=== PATIENT | female | born 1950 | race Caucasian/White ===

== ENCOUNTER 2019-10-08 19:27 | Inpatient (IN) | payer MEDICARE, MEDICAID ==
[~2019-10-08] VITALS: Ht 175.3 cm; Wt 74.8 kg
[2019-10-08] MEDS ORDERED: ONDANSETRON HCL 4MG/2ML INJ IV STA (20:28)
[2019-10-08] MEDS ORDERED: SODIUM CHLORIDE 0.9% 1,000 ML IV ONE (20:28)
[2019-10-08 20:57] LABS: HEMATOCRIT. 42.3 % (36.0-48.0); HEMOGLOBIN. 14.5 g/dL (12.0-16.0); MEAN CORPUSCULAR HEMOGLOBIN 29.8 pg (28.0-32.0); MEAN CORPUSCULAR VOLUME 87.2 fL (81.0-99.0); MEAN PLATELET VOLUME 9.7 fl (7.4-10.4); PLATELET 57 x1000/uL (130-400); RED BLOOD CELL COUNT 4.86 mill/uL (4.2-5.4); RED CELL DISTRIBUTION WIDTH 14.2 % (11.6-14.6)
[2019-10-08 21:02] LABS: CHLORIDE 106 mEq/L (98-107)
[2019-10-08 21:03] LABS: INR 1.2; PROTHROMBIN TIME 12.9 sec (9.6-11.0)
[2019-10-08 21:54] LABS: PLATELET ESTIMATE DECREASED
[2019-10-08] MEDS ORDERED: KETOROLAC 15MG/ML VIAL IV NR (23:00)
[2019-10-08 23:50] LABS: CLARITY URINE CLEAR (CLEAR); COLOR URINE YELLOW (YELLOW); KETONES URINE TRACE (NEGATIVE); LEUKOCYTE ESTERASE URINE NEGATIVE (NEGATIVE); NITRITE URINE NEGATIVE (NEGATIVE); OCCULT BLOOD URINE 1+ (NEGATIVE); PH URINE 5.5 (4.5-8.0); PROTEIN URINE 1+ (NEGATIVE); SPECIFIC GRAVITY URINE 1.026 (1.005-1.030)
[2019-10-09] MEDS ORDERED: LORAZEPAM 2MG/ML CPJ IV ONE
[2019-10-09] MEDS ORDERED: METOCLOPRAMIDE HCL 10MG/2ML VIAL IV ONE
[2019-10-09] MEDS ORDERED: ONDANSETRON HCL 4MG/2ML INJ IV ONE
[2019-10-09] MEDS ORDERED: METO25TA6 MT (10:02)
[2019-10-09] MEDS ORDERED: RIFA550T PO (10:02)
[2019-10-09] MEDS ORDERED: APIX5TAB MT (10:02)
[2019-10-09] MEDS ORDERED: AMIO100T4 PO (10:02)
[2019-10-09] MEDS ORDERED: HYDR8TAB44 PO (10:02)
[2019-10-09] MEDS ORDERED: TRAM50TA PO (10:02)
[2019-10-09] MEDS ORDERED: ONDANSETRON HCL 4MG/2ML INJ IV PRN (10:45)
[2019-10-09] MEDS ORDERED: TRAZODONE HCL 50MG TABLET PO PRN (10:45)
[2019-10-09] MEDS ORDERED: ACETAMINOPHEN 325MG TABLET PO PRN (10:45)
[2019-10-09 11:27] LABS: BASOPHILS % 0.1 % (0.0-2.0); EOSINOPHILS % 0.1 % (0.0-5.0); HEMATOCRIT. 39.6 % (36.0-48.0); HEMOGLOBIN. 13.8 g/dL (12.0-16.0); LYMPHOCYTES % 7.5 % (20.0-50.0); MEAN CORPUSCULAR HEMOGLOBIN 30.7 pg (28.0-32.0); MEAN CORPUSCULAR VOLUME 87.9 fL (81.0-99.0); MEAN PLATELET VOLUME 9.6 fl (7.4-10.4); MONOCYTES % 7.3 % (2.0-8.0); PLATELET 61 x1000/uL (130-400); RED CELL DISTRIBUTION WIDTH 14.6 % (11.6-14.6)
[2019-10-09 11:30] LABS: CHLORIDE 108 mEq/L (98-107)
[2019-10-09] MEDS: METOPROLOL TARTRATE 25MG TABLET PO SCH (12:10)
[2019-10-09] MEDS: AMIODARONE HCL 200 MG TABLET PO SCH (12:10)
[2019-10-09] MEDS: TRAMADOL 50MG TABLET PO SCH (12:11)
[2019-10-09] MEDS: RIFAXIMIN 550 MG TABLET PO SCH ×2 (12:11→16:50)
[2019-10-09] MEDS: PIPERACILLIN/TAZOBACTAM 3.375 G in DEXTROSE 5% WATER 50 ML IV SCH ×2 (12:21→18:40)
[2019-10-09] MEDS: HYDROMORPHONE HCL 2MG TABLET PO SCH (13:33)
[2019-10-09] MEDS: MAGNESIUM GLUCONATE 500MG TABLET PO SCH (15:15)
[2019-10-09] MEDS ORDERED: APIXABAN 5 MG TABLET PO SCH (17:00)
[2019-10-09 23:33] VITALS: BP 125/65
[2019-10-10] VITALS: BP 126/65
[2019-10-10] MEDS: PIPERACILLIN/TAZOBACTAM 3.375 G in DEXTROSE 5% WATER 50 ML IV SCH ×5 (01:34→18:23)
[2019-10-10] MEDS: HYDROMORPHONE HCL 2MG TABLET PO SCH ×3 (01:48→13:31)
[2019-10-10 04:00] VITALS: BP 127/54
[2019-10-10 05:37] LABS: CHLORIDE 107 mEq/L (98-107)
[2019-10-10 05:50] LABS: T4 FREE 1.14 ng/dL (0.76-1.46)
[2019-10-10 06:51] LABS: BASOPHILS % 0.4 % (0.0-2.0); EOSINOPHILS % 1.3 % (0.0-5.0); HEMATOCRIT. 37.5 % (36.0-48.0); LYMPHOCYTES % 16.1 % (20.0-50.0); MEAN CORPUSCULAR HEMOGLOBIN 30.4 pg (28.0-32.0); MEAN CORPUSCULAR VOLUME 87.9 fL (81.0-99.0); MEAN PLATELET VOLUME 10.6 fl (7.4-10.4); MONOCYTES % 10.2 % (2.0-8.0); PLATELET 63 x1000/uL (130-400); RED BLOOD CELL COUNT 4.26 mill/uL (4.2-5.4); RED CELL DISTRIBUTION WIDTH 14.9 % (11.6-14.6)
[2019-10-10 08:00] VITALS: BP 115/55
[2019-10-10] MEDS ORDERED: AMIODARONE HCL 200 MG TABLET PO SCH (08:00)
[2019-10-10] MEDS: METOPROLOL TARTRATE 25MG TABLET PO SCH ×4 (09:00→20:40)
[2019-10-10] MEDS ORDERED: TRAMADOL 50MG TABLET PO SCH (09:00)
[2019-10-10] MEDS ORDERED: RIFAXIMIN 550 MG TABLET PO SCH (09:00)
[2019-10-10] MEDS ORDERED: HYDROMORPHONE HCL 2MG TABLET PO SCH ×2 (09:00→22:30)
[2019-10-10] MEDS: MAGNESIUM GLUCONATE 500MG TABLET PO SCH (09:01)
[2019-10-10] MEDS: RIFAXIMIN 550 MG TABLET PO SCH ×2 (09:02→17:53)
[2019-10-10] MEDS: TRAMADOL 50MG TABLET PO SCH (09:02)
[2019-10-10] MEDS: AMIODARONE HCL 200 MG TABLET PO SCH (09:05)
[2019-10-10 12:00] VITALS: BP 147/50
[2019-10-10] MEDS: CITALOPRAM HYDROBROMIDE 10MG TABLET PO SCH (13:38)
[2019-10-10 14:48] LABS: *AMPHETAMINES SCREEN URINE NEGATIVE (NEGATIVE); *BARBITURATES SCREEN URINE NEGATIVE (NEGATIVE); *BENZODIAZEPINES SCREEN URINE PRESUMTIVE POSITIVE (NEGATIVE); *COCAINE SCREEN URINE NEGATIVE (NEGATIVE); METHADONE URINE SCREEN NEGATIVE (NEGATIVE)
[2019-10-10 14:49] LABS: CANNABINOID URINE SCREEN PRESUMTIVE POSITIVE (NEGATIVE); OPIATES URINE SCREEN PRESUMTIVE POSITIVE (NEGATIVE); PHENCYCLIDINE URINE SCREEN NEGATIVE (NEGATIVE)
[2019-10-10 16:00] VITALS: BP 140/66
[2019-10-10 20:00] VITALS: BP 119/61
[2019-10-11] VITALS: BP 130/60
[2019-10-11] MEDS: PIPERACILLIN/TAZOBACTAM 3.375 G in DEXTROSE 5% WATER 50 ML IV SCH ×3 (00:46→12:14)
[2019-10-11 04:00] VITALS: BP 126/54
[2019-10-11 08:00] VITALS: BP 124/57
[2019-10-11 08:11] LABS: BASOPHILS % 0.5 % (0.0-2.0); EOSINOPHILS % 1.9 % (0.0-5.0); HEMATOCRIT. 37.2 % (36.0-48.0); HEMOGLOBIN. 13.1 g/dL (12.0-16.0); LYMPHOCYTES % 25.1 % (20.0-50.0); MEAN CORPUSCULAR HEMOGLOBIN 30.4 pg (28.0-32.0); MEAN CORPUSCULAR VOLUME 86.4 fL (81.0-99.0); MEAN PLATELET VOLUME 10.1 fl (7.4-10.4); MONOCYTES % 12.6 % (2.0-8.0); NEUTROPHILS % 59.9 % (40.0-76.0); PLATELET 70 x1000/uL (130-400); RED CELL DISTRIBUTION WIDTH 14.6 % (11.6-14.6)
[2019-10-11 08:16] LABS: CHLORIDE 107 mEq/L (98-107)
[2019-10-11] MEDS: METOPROLOL TARTRATE 25MG TABLET PO SCH (09:00)
[2019-10-11] MEDS: RIFAXIMIN 550 MG TABLET PO SCH (09:28)
[2019-10-11] MEDS: MAGNESIUM GLUCONATE 500MG TABLET PO SCH (09:29)
[2019-10-11] MEDS: CITALOPRAM HYDROBROMIDE 10MG TABLET PO SCH (09:29)
[2019-10-11] MEDS: AMIODARONE HCL 200 MG TABLET PO SCH (09:38)
[2019-10-11] MEDS: HYDROMORPHONE HCL 2MG TABLET PO SCH (09:42)
[2019-10-11] MEDS: TRAMADOL 50MG TABLET PO SCH (09:43)
[2019-10-11] MEDS ORDERED: CITA10TA16 PO (12:03)
[2019-10-11] MEDS ORDERED: PROM12.513 MT (13:10)
[2019-10-11] MEDS ORDERED: CITA20TA75 MT (13:10)
[2019-10-11 13:37] VITALS: BP 100/36
== END 2019-10-11 14:45 | disposition home or self-care (01) | DRG 394 ==
LOC: ER 19:27 → MICUSO 10-09 00:29 → 5WST 10-09 21:58
PROVIDERS: ADMIT Internal Medicine; ATTEND Internal Medicine
DX: R11.15 Cyclical vomiting syndrome unrelated to migraine (principal); I85.10 Secondary esophageal varices without bleeding; K76.6 Portal hypertension; E44.0 Moderate protein-calorie malnutrition; K74.60 Unspecified cirrhosis of liver; I48.0 Paroxysmal atrial fibrillation; F41.9 Anxiety disorder, unspecified; G89.4 Chronic pain syndrome; D72.829 Elevated white blood cell count, unspecified; R01.1 Cardiac murmur, unspecified; R00.1 Bradycardia, unspecified; K58.0 Irritable bowel syndrome with diarrhea; E83.42 Hypomagnesemia; R16.1 Splenomegaly, not elsewhere classified; D69.6 Thrombocytopenia, unspecified; K58.9 Irritable bowel syndrome, unspecified; Z79.01 Long term (current) use of anticoagulants; Z79.899 Other long term (current) drug therapy; Z88.8 Allergy status to other drugs, medicaments and biological substances; Z98.82 Breast implant status; Z87.11 Personal history of peptic ulcer disease
CPT/HCPCS: 36415; 71045; 74176; 80048; 80053; 80305; 81003; 82140; 83735; 84439; 84443; 84484; 85025; 93005; 93306; 99285; J1885; J2060; J2405; J2543; J2765; J7030; J7060

== ENCOUNTER 2019-12-24 23:33 | Emergency (ER) | payer MEDICARE, MEDICAID ==
[~2019-12-24] VITALS: Ht 175.3 cm; Wt 69.0 kg
[~2019-12-24 23:33] MED LIST: AMIO100T4 PO; CITA10TA16 PO; CITA20TA75 MT; HYDR8TAB44 PO; PROM12.513 MT; RIFA550T PO; TRAM50TA PO
[2019-12-25] MEDS ORDERED: TRAMADOL 50MG TABLET PO ONE (01:30)
[2019-12-25] MEDS ORDERED: METOCLOPRAMIDE HCL 10MG/2ML VIAL IM ONE (01:45)
[2019-12-25] MEDS ORDERED: OMEPRAZOLE 20MG CAPSULE EXTENDED RELEASE PO ONE (01:45)
[2019-12-25] MEDS ORDERED: LIDOCAINE HCL 1% 20ML VIAL (Pyxis) INJ INFIL SCH (01:45)
[2019-12-25] MEDS ORDERED: CEFTRIAXONE SODIUM 1 G/VIAL IM SCH (01:45)
[2019-12-25 02:25] LABS: CLARITY URINE CLEAR (CLEAR); COLOR URINE DARK YELLOW (YELLOW); KETONES URINE TRACE (NEGATIVE); LEUKOCYTE ESTERASE URINE TRACE (NEGATIVE); NITRITE URINE NEGATIVE (NEGATIVE); OCCULT BLOOD URINE NEGATIVE (NEGATIVE); PH URINE 6.5 (4.5-8.0); PROTEIN URINE TRACE (NEGATIVE); SPECIFIC GRAVITY URINE 1.024 (1.005-1.030)
[2019-12-25 03:12] VITALS: BP 122/53
== END 2019-12-25 03:15 | disposition home or self-care (01) ==
LOC: ER 23:33
DX: N30.90 Cystitis, unspecified without hematuria (principal); K21.9 Gastro-esophageal reflux disease without esophagitis; Z88.8 Allergy status to other drugs, medicaments and biological substances
CPT/HCPCS: 81003; 82962; 93005; 96372; 99284; J0696; J2765; J3490

== ENCOUNTER 2021-01-18 21:39 | Emergency (ER) | payer MEDICARE, MEDICAID ==
[~2021-01-18] VITALS: Ht 172.7 cm; Wt 65.0 kg
[~2021-01-18 21:39] MED LIST changes: +HYDR8TAB PO; -HYDR8TAB44 PO; +PROM25TA13 MT
[2021-01-18] MEDS ORDERED: ONDANSETRON HCL 4MG/2ML INJ IV STA (22:07)
[2021-01-18] MEDS ORDERED: MORPHINE SULFATE 4 MG/ML CPJ (NOT FOR IM USE) IV STA (22:07)
[2021-01-18] MEDS ORDERED: SODIUM CHLORIDE 0.9% 1,000 ML IV ONE (22:15)
[2021-01-18 22:33] LABS: BASOPHILS % 0.6 % (0.0-2.0); EOSINOPHILS % 0.8 % (0.0-5.0); HEMATOCRIT. 39.3 % (36.0-48.0); HEMOGLOBIN. 13.9 g/dL (12.0-16.0); LYMPHOCYTES % 23.3 % (20.0-50.0); MEAN CORPUSCULAR HEMOGLOBIN 30.5 pg (28.0-32.0); MEAN CORPUSCULAR VOLUME 86.4 fL (81.0-99.0); MEAN PLATELET VOLUME 9.6 fl (7.4-10.4); NEUTROPHILS % 67.3 % (40.0-76.0); PLATELET 80 x1000/uL (130-400); RED BLOOD CELL COUNT 4.55 mill/uL (4.2-5.4); RED CELL DISTRIBUTION WIDTH 14.9 % (11.6-14.6)
[2021-01-18 22:39] LABS: CHLORIDE 109 mEq/L (98-107)
[2021-01-18 22:44] LABS: INR 1.1; PARTIAL THROMBOPLASTIN TIME 28.5 sec (23.4-31.0); PROTHROMBIN TIME 11.7 sec (9.6-11.0)
[2021-01-19] MEDS ORDERED: MORPHINE SULFATE 4 MG/ML CPJ (NOT FOR IM USE) IV ONE (00:30)
[2021-01-19] MEDS ORDERED: IBUP-2029 MT (02:03)
[2021-01-19 02:23] VITALS: BP 157/75
== END 2021-01-19 03:00 | disposition home or self-care (01) ==
LOC: ER 21:39
DX: R10.33 Periumbilical pain (principal); Z87.440 Personal history of urinary (tract) infections; Z98.890 Other specified postprocedural states; Z79.899 Other long term (current) drug therapy; Z20.822 Contact with and (suspected) exposure to COVID-19
CPT/HCPCS: 36415; 71045; 74176; 76641; 80053; 83690; 83880; 84484; 85025; 85610; 85730; 87086; 87426; 93005; 96361; 96374; 96375; 96376; 99285; J2270; J2405; J7030